=== PATIENT | female | born 1945 | race Caucasian/White ===

== ENCOUNTER 2022-05-15 15:52 | Emergency (ER) | payer MEDICARE ==
[~2022-05-15] VITALS: Ht 160 cm; Wt 90.7 kg
[2022-05-15] MEDS ORDERED: TDAP [DIPH/PERTUSSIS/TET] 0.5 ML VIAL IM ONE ×2 (17:00→18:41)
--- NOTE | 2022-05-15 20:03 | NUR ---
Patient discharged to home in stable condition. Written and verbal after care instructions given. Patient verbalizes understanding of instruction.
[2022-05-15 20:05] VITALS: BP 144/76
== END 2022-05-15 20:05 | disposition home or self-care (01) ==
LOC: ER 16:37
DX: S01.01XA Laceration without foreign body of scalp, initial encounter (principal); S60.051A Contusion of right little finger without damage to nail, initial encounter; S23.3XXA Sprain of ligaments of thoracic spine, initial encounter; S63.501A Unspecified sprain of right wrist, initial encounter; E78.00 Pure hypercholesterolemia, unspecified; Z88.2 Allergy status to sulfonamides; W01.0XXA Fall on same level from slipping, tripping and stumbling without subsequent striking against object, initial encounter; Y93.01 Activity, walking, marching and hiking; Y92.009 Unspecified place in unspecified non-institutional (private) residence as the place of occurrence of the external cause; Y99.8 Other external cause status
CPT/HCPCS: 99284; 72125; 71045; 12002; 90471; 90715; 73130; 73030; 70450; 72128; 73110; J7030; A6403